=== PATIENT | female | born 1980 | race Caucasian/White ===

== ENCOUNTER 2017-05-23 08:35 | Emergency (ER) | payer BC ==
[2017-05-23] MEDS: IBUPROFEN 600 MG TAB PO (08:51)
== END 2017-05-23 09:43 | disposition home or self-care (01) ==
LOC: FTE 08:35
DX: S99.911A Unspecified injury of right ankle, initial encounter (principal); X58.XXXA Exposure to other specified factors, initial encounter; Y92.9 Unspecified place or not applicable
CPT/HCPCS: 73610; 73610-RT; 99283-25